=== PATIENT | female | born 1995 | race American Indian/Alaskan Native ===

== ENCOUNTER 2017-02-04 01:04 | Emergency (ER) | payer OTHER ==
[2017-02-04 01:09] VITALS: BP 117/62
== END 2017-02-04 04:51 | disposition left against medical advice (07) ==
LOC: ED 01:04
DX: R51 Headache (principal); V89.2XXA Person injured in unspecified motor-vehicle accident, traffic, initial encounter; Y93.89 Activity, other specified; Y99.8 Other external cause status; Y92.488 Other paved roadways as the place of occurrence of the external cause; Z53.21 Procedure and treatment not carried out due to patient leaving prior to being seen by health care provider

== ENCOUNTER 2020-02-13 11:42 | Emergency (ER) | payer SELFPAY ==
[2020-02-13 11:49] VITALS: BP 124/83
--- NOTE | 2020-02-13 11:57 | Event Note ---
ED Screening Note ED Screening Note: SINCE FRI HEADACHE EYES HURT DID NOT GO TO WORK SAT- NOW CHILLS COUGH FEVER 99 SORE THROAT PMH MIGRAINE SINUS PSH NONE LMP 01/02 NOT SEXUALLY ACTIVE NO CIG NO ETOH NO EXPOSURES NO ONE ILL IN HOME THIS DOES NOT SEEM LIKE HER USUAL MIGRAINE/SINUS PAIN This initial assessment/diagnostic orders/clinical plan/treatment(s) is/are subject to change based on patients health status, clinical progression and re- assessment by fellow clinical providers in the ED. Further treatment and workup at subsequent clinical providers discretion. Patient/guardian urged not to elope from the ED as their condition may be serious if not clinically assessed and managed. Initial orders include: ACC URI
--- NOTE | 2020-02-13 12:45 | XRay Report ---
CHEST 2 VIEWS INDICATION / CLINICAL INFORMATION: LOW GRADE FEVER/COUGH. COMPARISON: None available. FINDINGS: SUPPORT DEVICES: None. HEART / MEDIASTINUM: No significant abnormality. LUNGS / PLEURA: No significant pulmonary or pleural abnormality. No pneumothorax. ADDITIONAL FINDINGS: No significant additional findings. IMPRESSION: 1. No acute findings. Signer Name: Gopi Giron MD Signed: 02/13/2020 12:41 PM Workstation Name: [id number]
--- NOTE | 2020-02-13 13:38 | Emergency Department Report ---
Minor Respiratory - HPI Chief Complaint: Headache Stated Complaint: CHILLS, EYES, HEADACHE Time Seen by Provider: 02/13/20 11:54 Duration: 3 Days Pain Location: Facial, Other Severity: mild Minor Respiratory: Yes Able to Tolerate Fluids, No Rhinorrhea, No Sore Throat, No Ear Pain, No Cough, No Sick Contacts, No Hemoptysis, No Chest Pain, No Shortness of Breath, No Fever Other History: 24 yo aa female with headache, it hurts when she moves her eyes. Has hx of sinus ma but this is diff. It has lasted longer and not responded to otc meds. xray ro covid/uri ED Review of Systems ROS: Stated complaint: CHILLS, EYES, HEADACHE Other details as noted in HPI Comment: All other systems reviewed and negative ED Past Medical Hx - Past Medical History Previous Medical History?: Yes Additional medical history: sinusitis - Surgical History Past Surgical History?: No - Social History Smoking Status: Never Smoker Substance Use Type: None - Medications Home Medications: Home Medications Medication Instructions Recorded Confirmed Last Taken Type Amoxicillin [Trimox CAP] 500 mg PO BID #20 capsule 02/13/20 Unknown Rx Fluticasone [Flonase] 1 spray NS QDAY #1 bottle 02/13/20 Unknown Rx predniSONE [Deltasone] 20 mg PO DAILY #5 tablet 02/13/20 Unknown Rx Minor Respiratory Exam - Exam General: Vital signs noted. No distress. Alert and acting appropriately. HEENT: Yes Moist Mucous Membranes, Yes Frontal Tenderness, Yes Maxillary Tenderness, No Pharyngeal Erythema, No Pharyngeal Exudates, No Rhinorrhea, No Conjuctival Injection Ear: Neither TM Bulge, Neither TM Erythema, Neither EAC Pain, Neither EAC Discharge Neck: Yes Supple, No Adenopathy Lungs: Yes Good Air Exchange, No Wheezes, No Ronchi, No Stridor, No Cough, No Labored Respirations, No Retractions, No Use of Accessory Muscles, No Other Abnormal Lung Sounds Heart: Yes Regular, No Murmur Abdomen: Yes Normal Bowel Sounds, No Tenderness, No Peritoneal Signs Skin: No Rash, No Edema Neurologic: Alert and oriented, no deficits. Musculoskeletal: Unremarkable. ED Course Vital Signs 02/13/20 11:46 Temperature 99.0 F Pulse Rate 100 H Respiratory 20 Rate Blood Pressure 124/83 O2 Sat by Pulse 100 Oximetry ED Medical Decision Making - Radiology Data Radiology results: report reviewed, image reviewed - Medical Decision Making xray nap pos sinus pressure/headache throat wnl lungs cta dc home with dc poc and pcp follow up pt verbalizes understanding of poc Vital Signs 02/13/20 11:46 Temperature 99.0 F Pulse Rate 100 H Respiratory 20 Rate Blood Pressure 124/83 O2 Sat by Pulse 100 Oximetry HR on dc 90 - Differential Diagnosis uri/sinusitis/ro covid Critical care attestation.: If time is entered above; I have spent that time in minutes in the direct care of this critically ill patient, excluding procedure time. ED Disposition Clinical Impression: Sinusitis, Headache Disposition: DC-01 TO HOME OR SELFCARE Is pt being admited?: No Does the pt Need Aspirin: No Condition: Stable Instructions: Sinusitis (ED) Additional Instructions: meds as ordered follow up pcp referral below motrin or tylenol for pain stay well hydrated Prescriptions: predniSONE [Deltasone] 20 mg PO DAILY #5 tablet Fluticasone [Flonase] 1 spray NS QDAY #1 bottle Amoxicillin [Trimox CAP] 500 mg PO BID #20 capsule Referrals: PRIMARY CARE, [Primary Care Provider] - 3-5 Days Time of Disposition: 13:39
== END 2020-02-13 13:46 | disposition home or self-care (01) ==
LOC: ED 11:42
DX: J32.9 Chronic sinusitis, unspecified (principal); R51 Headache; Z79.899 Other long term (current) drug therapy
CPT/HCPCS: 71046